=== PATIENT | female | born 1995 | race Caucasian/White ===

== ENCOUNTER 2023-07-30 07:41 | Outpatient (CLI) | payer OTHER, SELFPAY ==
--- NOTE | 2023-07-30 08:15 | CRLHL7_ITS ---
For Patients: As a result of the Century Cures Act, medical imaging exams and procedure reports are released immediately into your electronic medical record. You may view this report before your referring provider. If you have questions, please contact your health care provider. INDICATION: First trimester scan, establish dates. COMPARISON: None. TECHNIQUE: Real-time rascon-scale imaging of the pelvis was performed. FINDINGS: Sonographic imaging demonstrates a single living intrauterine gestation. The embryo demonstrates a regular cardiac rate measuring 154 beats per minute. The embryo`s crown-rump length measurement of 1.6 cm corresponds to a gestational age of 8 weeks 0 days with a sonographic due date of 03/10/2024. There is a normal-appearing yolk sac. There are no gross abnormalities noted within the embryo at this early state of development. The gestational sac has a normal appearance. There is no evidence of a perigestational hemorrhage. The amount of fluid within the sac appears appropriate for gestational age. The cervix is closed. The myometrium appears normal. The ovaries are of normal size. Corpus luteal cyst right ovary. There are no suspicious fluid collections noted in the cul-de-sac. IMPRESSION: Normal first trimester OB ultrasound exam. Gestational age calculated at 8 weeks 0 days with a sonographic due date of 03/10/2024. Dictated by Marco Bazzi MD @ 07/30/2023 8:43:58 AM (Electronically Signed)
== END 2023-07-30 07:42 | disposition home or self-care (01) ==
PROVIDERS: Visit Provider Physician Assistant
DX: Z34.91 Encounter for supervision of normal pregnancy, unspecified, first trimester (principal); Z3A.09 9 weeks gestation of pregnancy
CPT/HCPCS: 76817; 82565; 82570; 84156; 84443; 84450; 84460; 84520; 86592; 86703; 86704; 86706; 86762; 86787; 86803; 86850; 86900; 86901; 87086; 87340; 87491; 87591

== ENCOUNTER 2023-08-27 10:35 | Outpatient (CLI) | payer OTHER, SELFPAY | END 2023-08-27 10:36 | disposition home or self-care (01) | PROVIDERS: Visit Provider Obstetrics & Gynecology | DX: R74.01 Elevation of levels of liver transaminase levels (principal) | CPT/HCPCS: 82570; 84156; 84450; 84460 ==

== ENCOUNTER 2023-08-31 01:00 | Outpatient (CLI) | payer OTHER, SELFPAY | END 2023-08-31 01:01 | disposition home or self-care (01) | LOC: NFLDREF 09-01 12:50 | PROVIDERS: Visit Provider Obstetrics & Gynecology | DX: R74.01 Elevation of levels of liver transaminase levels (principal) | CPT/HCPCS: 82570; 84156 ==

== ENCOUNTER 2023-10-15 12:17 | Outpatient (CLI) | payer OTHER, SELFPAY ==
--- NOTE | 2023-10-15 12:15 | CRLHL7_ITS ---
For Patients: As a result of the Century Cures Act, medical imaging exams and procedure reports are released immediately into your electronic medical record. You may view this report before your referring provider. If you have questions, please contact your health care provider. INDICATION: Evaluate anatomy. COMPARISON: 07/30/2023 TECHNIQUE: Real time rascon scale imaging of the fetus was performed as well as color Doppler analysis of the umbilical vessels. FINDINGS: Sonographic imaging demonstrates a single living intrauterine gestation. Fetus demonstrates a regular cardiac rate of 144 beats per minute. Fetus has a vertex position. The placenta lies anteriorly. With transvaginal measurement, the placental edge is located 1.5 cm from the internal cervical os. Amniotic fluid volume appears normal. Single deepest vertical pocket: 3.8 cm. The cervix is closed and measures 3.6 cm in length. The composite ultrasound gestational age is calculated at 19 weeks 1 day with an estimated sonographic due date of 03/09/2024. The estimated weight is 273 grams which lies at the 8th %. The following biometric measurements were obtained: Biparietal diameter: 4.2 cm/18 weeks 6 days 10th% Head circumference: 16.4 cm/19 weeks 1 day 9th% Abdominal circumference: 13.5 cm/19 weeks 0 days 15th% Femur length: 3.0 cm/19 weeks 1 day 17th% The HC/AC ratio measures: 1.21 range (1.09-1.26) On anatomic survey, there is a normal appearance of the cerebral ventricles, cavum septi pellucidi, cisterna magna and cerebellum. The nose, lips, and facial profile appear normal. The cervical, thoracic and lumbar spine are well visualized and appear normal. There is a normal four-chamber heart view and the left and right ventricular outflow tracts appear normal. The diaphragm and stomach appear normal. The kidneys and bladder also appear normal. There is a normal three-vessel cord and cord insertion site. The four extremities appear normal. IMPRESSION: Sonographic gestational age 19 weeks 1 day and sonographic due date 03/09/2024. Sonographic age 6 days behind the clinical age. Estimated weight 8th percentile. Abdominal circumference 15th percentile. No intrinsic abnormalities noted on anatomic survey. Low lying placenta located 1.5 cm from the internal cervical os. Dictated by Marco Bazzi MD @ 10/15/2023 2:02:46 PM (Electronically Signed)
== END 2023-10-15 12:18 | disposition home or self-care (01) ==
PROVIDERS: Visit Provider Obstetrics & Gynecology
DX: Z34.92 Encounter for supervision of normal pregnancy, unspecified, second trimester (principal); Z3A.19 19 weeks gestation of pregnancy
CPT/HCPCS: 76805; 76817; 76820

== ENCOUNTER 2023-12-10 10:00 | Outpatient (CLI) | payer BC, SELFPAY | END 2023-12-10 10:01 | disposition home or self-care (01) | LOC: NFLDREF 12-20 08:32 | PROVIDERS: Visit Provider Obstetrics & Gynecology | DX: Z34.82 Encounter for supervision of other normal pregnancy, second trimester (principal) | CPT/HCPCS: 86592 ==

== ENCOUNTER 2024-01-28 13:49 | Outpatient (CLI) | payer BC, SELFPAY | END 2024-01-28 13:50 | disposition home or self-care (01) | LOC: NFLDREF 01-31 07:22 | PROVIDERS: Visit Provider Obstetrics & Gynecology | DX: O99.013 Anemia complicating pregnancy, third trimester (principal); Z3A.37 37 weeks gestation of pregnancy | CPT/HCPCS: 82728 ==

== ENCOUNTER 2024-02-14 13:06 | Outpatient (CLI) | payer BC, SELFPAY ==
--- NOTE | 2024-02-14 13:00 | US_ITS ---
Patient: BETTY MCKEON Facility:?[facility] Patient ID:?[id number] Site Patient ID:?[id number]. Site :?[id number] Study:?US-OB Pelvis growth-02/14/2024 1:41:29 PM Ordering Physician:Malina Garcia Final Report: INDICATION: Third trimester scan, evaluate growth. COMPARISON: 10/15/2023 TECHNIQUE: Real time rascon scale imaging of the fetus was performed. FINDINGS: Sonographic imaging demonstrates a single living intrauterine gestation. Fetus demonstrates a regular cardiac rate of 169 beats per minute. Fetus has a vertex position. The placenta lies anteriorly. Amniotic fluid volume appears normal and there is a single deepest vertical pocket: 7.2 cm. The estimated weight is 3192gm which lies at the 78th %. On the prior OB ultrasound exam dated 10/15/2023 the estimated weight was at the 8th%. BPD is 74th percentile. HC 41st percentile. AC 95th percentile. FL 31st percentile. The HC/AC ratio measures 0.96 range (0.92-1.05). IMPRESSION: Sonographic gestational age 37 weeks 0 days and a sonographic due date of 03/06/2024. Sonographic age 4 days ahead of the clinical age. Estimated weight is 78th percentile. Abdominal circumference is 95th percentile. Dictated by Marco Bazzi MD @ 02/15/2024 9:23:11 AM Signed by:?Marco Bazzi MD @02/15/2024 9:23:11 AM (Electronic Signature)
== END 2024-02-14 13:07 | disposition home or self-care (01) ==
LOC: US 13:07
PROVIDERS: Visit Provider Obstetrics & Gynecology
DX: O26.843 Uterine size-date discrepancy, third trimester (principal); Z3A.37 37 weeks gestation of pregnancy
CPT/HCPCS: 76816; 87081; 87653

== ENCOUNTER 2024-03-14 07:03 | Inpatient (IN) | payer BC, SELFPAY ==
[2024-03-14] VITALS (37 sets, daily range): BP systolic 51–164; BP diastolic 32–84; PULSE 46–115; RESP 16; TEMP 35.9–37.1; O2SAT 97–100; BMI 33.9
[2024-03-14] MEDS: LACTATED RINGERS 1000 ML 1,000 ML 1200 ML IV ×2 (08:28→11:44)
--- NOTE | 2024-03-14 08:51 | P.LDBA_ITS ---
Subjective History of Present Illness Date Seen: 03/14/24 Narrative: Patient is being admitted to Labor and Delivery for scheduled repeat . She is a 28 year old -0-0-1 woman at 40 weeks, 3 days gestation. Her full history and physical was dictated by Dr. Webber on 02/21. Please see this for details. Specific Issues/Plans [id number] 4 yo girl, [place] # History of gestational hypertension antepartum (beginning 33 weeks), followed by severe pre E Baseline pre E labs: all with the exception of mildly elevated AST, 46. pr/cr ratio: 0.00 24 hour urine 08/31/23: 55 mg Repeat AST normal 08/27/23 Aspirin 81 mg starting at 12 weeks # History of , breech presentation - 67% success score Desires if spontaneous labor, otherwise tentatively planning repeat 40-41 weeks, scheduled for 03/14/24 Consent signed 01/14/24 [x] 36 week growth - 3192g, 78%ile # Anemia at 34 weeks. Hb 10.0. * Ferrous sulfate 650 mg QOD. # Non-immune to hepatitis B # History of anovulatory infertility. Conceived spontaneously. # Low-lying placenta - Resolved on MFM scan on 11/01: >2 cm from internal os. # growth restriction @ anatomy scan (20w0d) - RESOLVED EFW 8th percentile, AC 15%tile, normal UA Doppler SDP 3.8 cm Referral to [facility] (11/01/23): Her ANGELITA was re-dated to 03/10/24. EFW 52% and AC 52%tile. Overall normal, but suboptimally used. Follow-up in 3 weeks for repeat ultrasounds. Repeat US 11/22/23: EFW 808g, 83%ile. Normal anatomy. # COVID in (29 weeks) FLU: 07/30 Covid: RSV: NA TDAP: 01/14/24 OB - Problem Based A/P Additional Plan (1) : Status: Acute (2) Previous delivery affecting : Status: Acute Delivery/Labor/Induction Plan Plan: Section OB Exam Physical Exam Vital signs: Temp Pulse Resp BP Pulse Ox 98.7 F 97 16 133/83 99 03/14/24 07:33 03/14/24 07:33 03/14/24 07:33 03/14/24 07:33 03/14/24 07:33 Narrative: General: Pleasant, no acute distress Heart: Regular rate and rhythm, no murmur or gallop Lungs: Clear to auscultation bilaterally Abdomen: Soft, nontender, gravid Lower extremities: Trace bilateral edema, no erythema
[2024-03-14 08:56] LABS: Hemoglobin* 10.6 gm/dL (12.0-16.0)
[2024-03-14 09:28] LABS: Basophils Percent Auto 0.1 % (0.0-3.0); Eosinophils Percent Auto 0.5 % (0.0-7.0); Hematocrit 33.1 % (33.0-51.0); Hemoglobin* 10.7 gm/dL (12.0-16.0); Immature Granulocytes Pct Auto 0.3 %; Lymphocytes Percent Auto 17.2 % (20-44); Mean Corpuscular HGB Conc 32 gm/dL (32-36); Mean Corpuscular Hemoglobin 25 pg (26-34); Mean Corpuscular Volume 78 fL (80-100); Monocytes Percent Auto 6.3 % (0.0-11.0); Neutrophils Percent Auto 75.6 % (42.0-72.0); Platelet Count* 253 K/uL (140-440); RDW Coefficient of Variation % 15.9 % (11.5-15.5); Red Blood Count 4.24 m/uL (4.00-5.20); Slide Review Reflex No; White Blood Count* 11.79 K/uL (4.50-11.00)
--- NOTE | 2024-03-14 09:45 | W.ANESCHARGE ---
Anesthesia Charges Start Date/Time Anesthesia Start Date: 03/14/24 Anesthesia Start Time: 09:57 Stop Date/Time Anesthesia Stop Date: 03/14/24 Anesthesia Stop Time: 11:24
[2024-03-14] MEDS: CEFAZOLIN 2 GM INJ IVP (10:12)
[2024-03-14] MEDS: LACTATED RINGERS 1000 ML 1,000 ML 100 ML IV (10:27)
[2024-03-14] MEDS: KETOROLAC 30 MG/ML inj IVP ×3 (10:43→23:43)
--- NOTE | 2024-03-14 10:49 | W.ANESCHARGE ---
Anesthesia Charges Start Date/Time Anesthesia Start Date: 03/14/24 Anesthesia Start Time: 09:57 Stop Date/Time Anesthesia Stop Date: 03/14/24 Anesthesia Stop Time: 11:24
--- NOTE | 2024-03-14 11:10 | PM.OBPRCCS ---
Procedure Date of procedure: 03/14/24 Will [facility] bill your pro fee for this procedure?: Yes Procedure Description: PREOPERATIVE DIAGNOSIS: 40 weeks, 4 days gestation Previous , desires repeat POSTOPERATIVE DIAGNOSIS: 40 weeks, 4 days gestation Previous , desires repeat PROCEDURE: Primary low-transverse section SURGEON: Malina Mclain MD ANESTHESIA: Spinal, TAP block IV FLUIDS: 1700 mL crystalloid QBL: 542 mL FINDINGS: 1. Female , cephalic OA presentation, Apgars of 8 and 9, weight 9 lb, 2 oz 2. Normal appearance to uterus, bilateral tubes and ovaries. COMPLICATIONS: None PROCEDURE IN DETAIL: Patient was taken to the operating room with IV running. She received cefazolin in preoperative prophylaxis. Spinal anesthesia was administered. Ferrell catheter was inserted. She was prepped and draped in the usual sterile fashion. Anesthesia was tested and found to be adequate. A low-transverse skin incision was made with a scalpel and carried through to the underlying layer of fascia with the scalpel. The subcutaneous fat was dissected off the underlying fascia with Bovie. The fascia was nicked in the midline with a scalpel, and this incision was extended laterally with scissors. The rectus sheath was dissected for short distance off the underlying rectus muscle stools superiorly and inferiorly, using the Bovie. The rectus muscles were in the midline. Peritoneum was identified and entered bluntly. Bovie was used to widen this opening. Adarsh O retractor was inserted and tightened down, providing excellent visualization of the lower uterine segment. The bladder reflection was found to be well below the planned site for hysterotomy. Low-transverse uterine incision was made with a scalpel. Incision was widened bluntly. The 's head was grasped through the hysterotomy. Several attempts were made to deliver the 's head with fundal pressure, all unsuccessful. The Adarsh retractor was removed, to no avail. The fascia was further dissected off the underlying rectus sheath both superiorly and inferiorly, and the skin incision was extended. These maneuvers allowed delivery of the 's head with the help of fundal pressure. The remainder of the body delivered without incident. Cord was immediately clamped and cut. Infant was handed off to attending nurses. The placenta was delivered with gentle traction on the cord. The uterus was exteriorized and cleaned of all clots and debris with the dry lap pad. The hysterotomy was reapproximated with 0 Vicryl in a running, locked fashion. Bovie was used along the left angle of the hysterotomy to obtain hemostasis. The adnexa were examined and noted to be normal in appearance. The cul-de-sac and gutters were cleansed with dampened laparotomy sponge, removing any further clots and debris. The uterus was returned to the abdomen. The hysterotomy was reexamined and found to be hemostatic. The peritoneum was reapproximated with 2 0 Vicryl in a running fashion. The rectus muscles were examined and found to be hemostatic. The fascia was reapproximated with 0 Vicryl in a running fashion. Subcutaneous fat was irrigated and Bovie used on oozing vessels. The subcutaneous fat was reapproximated with 2 0 plain gut suture in an interrupted fashion. The skin was closed with a subcuticular stitch of 4-0 Monocryl. Surgical glue was applied above this. Patient tolerated procedure with some difficulty due to anxiety. She was taken to recovery area in stable condition.
--- NOTE | 2024-03-14 11:28 | W.PM.NB ---
Nerve Block Nerve Block Time Seen by Provider: 11:11 Date Seen: 03/14/24 Type of block requested by surgeon for post-operative analgesia: TAP Side: bilateral Time out performed: Yes Verification of patient name: Yes Verification of date of : Yes Site marking: site marked Name of person performing procedure: Will Continuous monitoring Was continuous monitoring of O2 sat, B/P, monitor and storage bin tender, recorded every 15 minutes?: Yes Procedure Checklist: sterile prep, needles and gloves Ultrasound guided. Images saved: Yes Medications given in 5ml increments after negative aspiration: Marcaine %: 0.25 mL: 30 Needle gauge: 20 and Exparel mL: 10 Patient tolerated procedure well: Yes Additional comments: Needle noted between internal oblique and transversus abdominus. Local spread visualized Block Charges Block Charge (with Pro Fee): TAP Bilateral Use of Ultrasound Machine for Block: Yes- US Guidance/pain block
[2024-03-14] MEDS: PHENYLEPHRINE 100 MCG/ML SYRINGE IVP ×2 (11:38→11:43)
[2024-03-14] MEDS: ePHEDrine sulfate 5 MG/ML inj IVP (11:43)
[2024-03-14] MEDS: LACTATED RINGERS 1000 ML 1,000 ML 125 ML IV (12:51)
[2024-03-14] MEDS: ACETAMINOPHEN 500 MG TABLET 1000 MG PO (13:02)
[2024-03-14] MEDS: ENOXAPARIN 40 MG/0.4 ML INJ SUBCUT (23:43)
[2024-03-15] VITALS (26 sets, daily range): BP systolic 113–134; BP diastolic 59–86; PULSE 63–107; RESP 16–20; TEMP 36.3–36.8; O2SAT 97–100
[2024-03-15] MEDS: ACETAMINOPHEN 500 MG TABLET 1000 MG PO ×3 (04:43→20:53)
[2024-03-15] MEDS: SODIUM CHLORIDE 0.9 % (FLUSH) 10 ML SYRINGE IVF ×2 (06:02→17:56)
[2024-03-15] MEDS: KETOROLAC 30 MG/ML inj IVP ×2 (06:02→17:56)
[2024-03-15 06:55] LABS: Hemoglobin* 5.9 gm/dL (12.0-16.0)
--- NOTE | 2024-03-15 07:01 | CRLHL7_ITS ---
For Patients: As a result of the Century Cures Act, medical imaging exams and procedure reports are released immediately into your electronic medical record. You may view this report before your referring provider. If you have questions, please contact your health care provider. INDICATION: R/O BLEED POST C-SEC 03/14/24 TECHNIQUE: CT abdomen and pelvis without and with 101 cc Isovue 370 IV contrast. COMPARISON: None. FINDINGS: The liver is normal in size, shape and attenuation. Gallbladder and biliary tree are normal. The spleen, adrenal glands and pancreas are within normal limits. Heterogenous enlargement of the uterus with moderate to large volume heterogeneous fluid within the uterine cavity with multifocal air droplets. Finding likely relates to sequela of recent although can not exclude retained products of conception or endometritis. Recommend clinical correlation. Serpiginous periuterine and myometrial enhancement which likely represents vasculature. This would make a small acute hemorrhage difficult to exclude although there is no evidence of prominent intraperitoneal or retroperitoneal hematoma. There is however small volume heterogeneous fluid within the lower pelvis which likely represents blood products. Small volume free air within the low pelvis as well as within the rectus musculature and subcutaneous soft tissues, likely postoperative. Moderate to severe right and [id number] left hydroureteronephrosis without evidence of ureteral calculus. 4 millimeter nonobstructing right intrarenal calculus is noted. No evidence of bowel obstruction or inflammation. No significant free fluid and no free air. Moderately distended bladder without wall thickening. The lower chest is unremarkable. IMPRESSION: Heterogenous enlargement of the uterus with moderate to large volume heterogeneous fluid within the uterine cavity with multifocal air droplets. Finding likely relates to sequela of recent although can not exclude retained products of conception or endometritis. Recommend clinical correlation. Serpiginous periuterine and myometrial enhancement which likely represents vasculature. This would make a small acute hemorrhage difficult to exclude although there is no evidence of prominent intraperitoneal or retroperitoneal hematoma. There is however small volume heterogeneous fluid within the lower pelvis which likely represents blood products. Small volume free air within the low pelvis as well as within the rectus musculature and subcutaneous soft tissues, likely postoperative. Moderate to severe right and [id number] left hydroureteronephrosis without evidence of ureteral calculus. 4 millimeter nonobstructing right intrarenal calculus is noted. Please note that all CT scans at this facility use dose modulation, iterative reconstruction, and/or weight-based dosing when appropriate to reduce radiation dose to as low as reasonably achievable. Dictated by Schuyler Alvarado MD @ 03/15/2024 8:18:29 AM (Electronically Signed)
[2024-03-15 07:18] LABS: Basophils Percent Auto 0.1 % (0.0-3.0); Eosinophils Percent Auto 0.4 % (0.0-7.0); Hematocrit 20.1 % (33.0-51.0); Immature Granulocytes Pct Auto 0.3 %; Lymphocytes Percent Auto 15.4 % (20-44); Mean Corpuscular HGB Conc 32 gm/dL (32-36); Mean Corpuscular Hemoglobin 25 pg (26-34); Mean Corpuscular Volume 80 fL (80-100); Monocytes Percent Auto 7.6 % (0.0-11.0); Neutrophils Percent Auto 76.2 % (42.0-72.0); Platelet Count* 206 K/uL (140-440); RDW Coefficient of Variation % 16.2 % (11.5-15.5); Red Blood Count 2.52 m/uL (4.00-5.20); White Blood Count* 15.23 K/uL (4.50-11.00)
[2024-03-15 07:22] LABS: Hemoglobin* 6.4 gm/dL (12.0-16.0)
[2024-03-15 07:35] LABS: Albumin* 2.6 g/dL (3.3-5.0); Chloride* 103 mmol/L (96-114); Potassium* 3.9 mmol/L (3.6-5.1); Sodium* 131 mmol/L (135-149)
[2024-03-15 07:37] LABS: Creatinine* 0.6 mg/dL (0.5-1.5); Est. Creatinine Clearance* 126.73; Estimated Glomerular Filt Rate 126 ml/min
[2024-03-15 07:38] LABS: Alanine Aminotransferase* 12 U/L (4-35); Alkaline Phosphatase* 138 U/L (40-150); Anion Gap 3 mEq/L (7-15); Aspartate Amino Transferase* 22 U/L (12-35); Bilirubin Total* 0.3 mg/dL (0.1-1.5); Blood Urea Nitrogen* 11 mg/dL (5-24); Carbon Dioxide* 25 mmol/L (20-32); Glucose* 97 mg/dL (60-115); Total Protein* 4.8 g/dL (6.0-8.3)
[2024-03-15 07:39] LABS: Calcium* 7.8 mg/dL (8.4-10.6)
[2024-03-15 07:40] LABS: Fibrinogen* 426 mg/dL (200-450); INR 1.01 (0.91-1.10); Partial Thromboplastin Time* 31 Seconds (23-33); Prothrombin Time 13.9 Seconds
[2024-03-15 08:44] LABS: Slide Review Reflex No
[2024-03-15] MEDS: 0.9 % SODIUM CHLORIDE 250 ml IV (11:18)
[2024-03-15 14:43] LABS: Basophils Percent Auto 0.1 % (0.0-3.0); Eosinophils Percent Auto 0.2 % (0.0-7.0); Hematocrit 23.9 % (33.0-51.0); Immature Granulocytes Pct Auto 1.2 %; Lymphocytes Percent Auto 15.9 % (20-44); Mean Corpuscular HGB Conc 32 gm/dL (32-36); Mean Corpuscular Hemoglobin 26 pg (26-34); Mean Corpuscular Volume 81 fL (80-100); Monocytes Percent Auto 7.3 % (0.0-11.0); Neutrophils Percent Auto 75.3 % (42.0-72.0); Platelet Count* 193 K/uL (140-440); RDW Coefficient of Variation % 16.6 % (11.5-15.5); Red Blood Count 2.97 m/uL (4.00-5.20); White Blood Count* 12.33 K/uL (4.50-11.00)
[2024-03-15 14:45] LABS: Hemoglobin* 7.7 gm/dL (12.0-16.0)
[2024-03-15 14:50] LABS: Slide Review Reflex Yes
[2024-03-15 14:54] LABS: Partial Thromboplastin Time* 29 Seconds (23-33)
[2024-03-15 14:55] LABS: Fibrinogen* 453 mg/dL (200-450)
[2024-03-15 14:56] LABS: INR 0.95 (0.91-1.10); Prothrombin Time 13.3 Seconds
[2024-03-15 15:30] LABS: Slide Review Acceptable Review (Acceptable)
[2024-03-15 18:06] LABS: Rapid Plasma Reagin (RPR) Non Reactive (Non Reactive)
--- NOTE | 2024-03-15 18:14 | P.OBPN_ITS ---
OB - PN:Subj Subjective Time Seen by Provider: 07:30 Date Seen: 03/15/24 Interval history: Tarsha is a 28 yo G2 now P 2-0-0-2 woman who is status post repeat delivery on 03/13/2024 at 40 weeks, 3 days gestation. OB PROBLEM LIST # History of gestational hypertension antepartum (beginning 33 weeks), followed by severe pre E Baseline pre E labs: all with the exception of mildly elevated AST, 46. pr/cr ratio: 0.00 24 hour urine 08/31/23: 55 mg Repeat AST normal 08/27/23 Aspirin 81 mg starting at 12 weeks # History of , breech presentation - 67% success score Desires if spontaneous labor, otherwise tentatively planning repeat 40-41 weeks, scheduled for 03/14/24 Consent signed 01/14/24 [x] 36 week growth - 3192g, 78%ile # Anemia at 34 weeks. Hb 10.0. * Ferrous sulfate 650 mg QOD. # Non-immune to hepatitis B # History of anovulatory infertility. Conceived spontaneously. # Low-lying placenta - Resolved on MFM scan on 11/01: >2 cm from internal os. # growth restriction @ anatomy scan (20w0d) - RESOLVED EFW 8th percentile, AC 15%tile, normal UA Doppler SDP 3.8 cm Referral to MFM (11/01/23): Her ANGELITA was re-dated to 03/10/24. EFW 52% and AC 52%tile. Overall normal, but suboptimally used. Follow-up in 3 weeks for repeat ultrasounds. Repeat US 11/22/23: EFW 808g, 83%ile. Normal anatomy. # COVID in (29 weeks) Narrative: I was called urgently to Tarsha's room this morning after routine hemoglobin this morning was noted to be 5.9. Tarsha had stable vital signs throughout the night. She was meeting postoperative milestones, and does not complain of pain. She was able to ambulate to the bathroom. Upon questioning, she does not note any ongoing heavy bleeding, but does report the passage of 2 large clots last night. Her QBL from surgery was 542 mL. She has had normal urine output overnight. She did receive a dose of prophylactic Lovenox 40 mg 12 hours after surgery She is using Toradol for pain. For routine progress: She has been breast-feeding her daughter with formula supplementation. She tolerated regular diet last night and reports having passed flatus. She is urinating without difficulty. As noted above, she has no complaints with nausea, vomiting, pain, or heavy bleeding. OB - PN: Obj Exam Physical Exam: Vital signs: Temp Pulse Resp BP Pulse Ox O2 Del Method 98.1 F 98 16 122/78 99 Room Air 03/15/24 16:35 03/15/24 16:35 03/15/24 16:35 03/15/24 16:35 03/15/24 16:35 03/15/24 16:35 Narrative: General: Pleasant, no acute distress, appears pale Heart: Regular rate and rhythm, no murmur or gallop Lungs: Clear to auscultation bilaterally Abdomen: Hypoactive bowel sounds. Soft, appropriately tender, fundus 2 cm below umbilicus, incision clean, dry, and intact Lower extremities: 2+ edema, no erythema Urinary Catheter Management: Urethral: Cath placed during this visit: yes, but has since been removed by the nurse Reason for continuing: not indwelling catheter Insertion date: 03/14/24 Insertion time: 10:25 Removal date: 03/14/24 Removal time: 18:40 OB - PN: Obj Data Labs Labs: Laboratory Results - last 24 hr 03/14/24 03/15/24 03/15/24 08:13 06:06 07:13 WBC 15.23 H RBC 2.52 L Hgb 5.9 L* 6.4 L* Hct 20.1 L MCV 80 MCH 25 L MCHC 32 RDW Coeff of Amando 16.2 H Plt Count 206 Neut % (Auto) 76.2 H Lymph % (Auto) 15.4 L [place] % (Auto) 7.6 Eos % (Auto) 0.4 Baso % (Auto) 0.1 Neut # (Auto) 11.60 H Lymph # (Auto) 2.30 [place] # (Auto) 1.20 H Eos # (Auto) 0.10 Baso # (Auto) 0.00 Abs Immat Gran (auto) 0.00 Imm/Tot Granulo (auto) 0.3 Diff Slide Review INR 1.01 APTT 31 Fibrinogen 426 Sodium 131 L Potassium 3.9 Chloride 103 Carbon Dioxide 25 Anion Gap 3 L BUN 11 Creatinine 0.6 Estimated Creat Clear 126.73 Estimated GFR 126 Glucose 97 Calcium 7.8 L Total Bilirubin 0.3 AST 22 ALT 12 Alkaline Phosphatase 138 Total Protein 4.8 L Albumin 2.6 L RPR Screen Non Reactive Blood Type A Positive Antibody Screen NEGATIVE Crossmatch (AHG) See Detail 03/15/24 14:31 WBC 12.33 H RBC 2.97 L Hgb 7.7 L* Hct 23.9 L MCV 81 MCH 26 MCHC 32 RDW Coeff of Amando 16.6 H Plt Count 193 Neut % (Auto) 75.3 H Lymph % (Auto) 15.9 L [place] % (Auto) 7.3 Eos % (Auto) 0.2 Baso % (Auto) 0.1 Neut # (Auto) 9.30 H Lymph # (Auto) 2.00 [place] # (Auto) 0.90 Eos # (Auto) 0.00 Baso # (Auto) 0.00 Abs Immat Gran (auto) 0.10 Imm/Tot Granulo (auto) 1.2 Diff Slide Review Acceptable Review INR 0.95 APTT 29 Fibrinogen 453 H Sodium Potassium Chloride Carbon Dioxide Anion Gap BUN Creatinine Estimated Creat Clear Estimated GFR Glucose Calcium Total Bilirubin AST ALT Alkaline Phosphatase Total Protein Albumin RPR Screen Blood Type Antibody Screen Crossmatch (AHG) Imaging CT Chest/Ab/Pelvis: Radiologist's impression: IMPRESSION: Heterogenous enlargement of the uterus with moderate to large volume heterogeneous fluid within the uterine cavity with multifocal air droplets. Finding likely relates to sequela of recent although can not exclude retained products of conception or endometritis. Recommend clinical correlation. Serpiginous periuterine and myometrial enhancement which likely represents vasculature. This would make a small acute hemorrhage difficult to exclude although there is no evidence of prominent intraperitoneal or retroperitoneal hematoma. There is however small volume heterogeneous fluid within the lower pelvis which likely represents blood products. Small volume free air within the low pelvis as well as within the rectus musculature and subcutaneous soft tissues, likely postoperative. Moderate to severe right and [id number] left hydroureteronephrosis without evidence of ureteral calculus. 4 millimeter nonobstructing right intrarenal calculus is noted. OB - PN: A/P Delivery Assessment and Plan (1) Acute post-hemorrhagic anemia: Status: Acute Assessment and Plan: No intra-abdominal or retroperitoneal bleeding on CT of abdomen and pelvis. It appears that her post hemorrhagic anemia is due to intraoperative blood loss and vaginal bleeding after surgery. This was not previously noted to be of were some quantity, but perhaps some of the blood loss that she experienced in the toilet attributed to this severe anemia. At this time, blood loss is within normal ranges. I would be quick to treat her with uterotonics should the need arise. Otherwise, she will be transfused 2 units of packed red cells and 1 unit of FFP. I will repeat her complete blood count and coagulation studies 2 hours after completion of the transfusion of FFP. I will also repeat complete blood count tomorrow morning. (2) Status post repeat low transverse section: Status: Acute Assessment and Plan: Despite her level blood loss, appropriate postoperative course. I encouraged her to stay for 3 days post . Plan day: 1
[2024-03-15] MEDS: OXYCODONE 5 MG TABLET PO (22:21)
[2024-03-16] VITALS (7 sets, daily range): BP systolic 114–138; BP diastolic 77–90; PULSE 75–93; RESP 16–20; TEMP 36.4–36.9; O2SAT 98–99
[2024-03-16] MEDS: IBUPROFEN 600 MG TABLET PO ×4 (04:05→23:06)
[2024-03-16] MEDS: ACETAMINOPHEN 500 MG TABLET 1000 MG PO ×3 (06:24→19:46)
[2024-03-16 07:05] LABS: Hemoglobin* 7.8 gm/dL (12.0-16.0)
--- NOTE | 2024-03-16 08:38 | P.OBPN_ITS ---
OB - PN:Subj Subjective Date Seen: 03/16/24 Interval history: Tarsha is a 28 yo G2 now P 2-0-0-2 woman who is status post repeat delivery on 03/13/2024 at 40 weeks, 3 days gestation. OB PROBLEM LIST # History of gestational hypertension antepartum (beginning 33 weeks), followed by severe pre E Baseline pre E labs: all with the exception of mildly elevated AST, 46. pr/cr ratio: 0.00 24 hour urine 08/31/23: 55 mg Repeat AST normal 08/27/23 Aspirin 81 mg starting at 12 weeks # History of , breech presentation - 67% success score Desires if spontaneous labor, otherwise tentatively planning repeat 40-41 weeks, scheduled for 03/14/24 Consent signed 01/14/24 [x] 36 week growth - 3192g, 78%ile # Anemia at 34 weeks. Hb 10.0. * Ferrous sulfate 650 mg QOD. # Non-immune to hepatitis B # History of anovulatory infertility. Conceived spontaneously. # Low-lying placenta - Resolved on MFM scan on 11/01: >2 cm from internal os. # growth restriction @ anatomy scan (20w0d) - RESOLVED EFW 8th percentile, AC 15%tile, normal UA Doppler SDP 3.8 cm Referral to MFM (11/01/23): Her ANGELITA was re-dated to 03/10/24. EFW 52% and AC 52%tile. Overall normal, but suboptimally used. Follow-up in 3 weeks for repeat ultrasounds. Repeat US 11/22/23: EFW 808g, 83%ile. Normal anatomy. # COVID in (29 weeks) Narrative: Tarsha is a 28 y.o. G 2 P 1 who was admitted to L & D for repeat section. ?She had a section that was uncomplicated. Her course was complicated by hemoglobin of 5.9 by routine hemoglobin check yesterday morning. Her vitals had been stable the night prior and bleeding appropriate. She barnhart reported passing 2 large clots but total QBL from surgery was 542. She received 2 units of RBC and 1 unit of FFP. This morning her hemoglobin is 7.8. She is visibly pale. The patient feels well. ?The pain is well controlled with current medications. ?She has no new complaints. ?She is breast feeding and reports things are going well. Vitals have been stable.? She has remained afebrile.? Has a good appetite, is tolerating a general diet. She reports she has hardly been out of bed this morning but has been up to the bathroom with no problems. She is siting in high fowlers and reports no symptoms of dizziness. She is voiding without difficulty.? She is passing gas and has no t had a bowel movement.? Has small amount of rubra lochia. Encouraged for her to be up and ambulating to assess if she is symptomatic. If stable and asymptomatic, recommend IV iron. If she has any symptoms of dizziness, lightheaded, tachycardia or other symptoms of acute blood loss, would consider an additional unit of RBC. RN updated provider that patient has been able to walk the unit with no d izziness. Plan iron infusion today. If doing well, anticipate discharge tomorrow. Problems: Severe Anemia received 2 units RBC and 1 unit FFP. IV iron infusion today. OB - PN: Obj Exam Physical Exam: Vital signs: Temp Pulse Resp BP Pulse Ox O2 Del Method 97.5 F L 81 18 138/85 98 Room Air 03/16/24 04:06 03/16/24 04:06 03/16/24 04:06 03/16/24 04:06 03/16/24 04:06 03/16/24 04:06 Narrative: GENERAL APPEARANCE:? normal affect, alert, no distress. Pale lips/mucous membranes. MOOD:? appropriate CHEST:? clear to auscultation HEART:? regular rate and rhythm ABDOMEN:? soft, non-tender the uterine fundus is at Umbilicus, Midline and is appropriate for the stage of recovery. EXTREMITIES:? normal and trace edema INCISION: Dressing in place; clean, dry, and intact. Should be removed this morning. Urinary Catheter Management: Urethral: Cath placed during this visit: yes, but has since been removed by the nurse Reason for continuing: not indwelling catheter Insertion date: 03/14/24 Insertion time: 10:25 Removal date: 03/14/24 Removal time: 18:40 OB - PN: Obj Data Labs Labs: Laboratory Results - last 24 hr 03/14/24 03/15/24 03/16/24 08:13 14:31 06:30 WBC 12.33 H RBC 2.97 L Hgb 7.7 L* 7.8 L* Hct 23.9 L MCV 81 MCH 26 MCHC 32 RDW Coeff of Amando 16.6 H Plt Count 193 Neut % (Auto) 75.3 H Lymph % (Auto) 15.9 L [place] % (Auto) 7.3 Eos % (Auto) 0.2 Baso % (Auto) 0.1 Neut # (Auto) 9.30 H Lymph # (Auto) 2.00 [place] # (Auto) 0.90 Eos # (Auto) 0.00 Baso # (Auto) 0.00 Abs Immat Gran (auto) 0.10 Imm/Tot Granulo (auto) 1.2 Diff Slide Review Acceptable Review INR 0.95 APTT 29 Fibrinogen 453 H RPR Screen Non Reactive Blood Type A Positive Antibody Screen NEGATIVE Crossmatch (AHG) See Detail OB - PN: A/P Delivery Assessment and Plan (1) care and examination immediately after delivery: Status: Acute (2) Acute post-hemorrhagic anemia: Status: Acute (3) Status post repeat low transverse section: Status: Acute (4) Lactating mother: Status: Acute Plan day: 2 Plan: routine care Comments: plan: Anticipate discharge home tomorrow. , may see if needed Hgb 7.8. Iron transfusion today. Monitor for symptoms and plan d/c tomorrow. Per pharmacy, the inpatient dose of iron is Venofer. This is best when 5 total doses are given over 2 weeks. Consider IV iron outpatient if wanting desired benefits. Patient would need 4 additional doses in the next 2 week.
[2024-03-16] MEDS: DOCUSATE SODIUM 100 MG CAPSULE PO (08:42)
[2024-03-16] MEDS: IRON SUCROSE COMPLEX 200 MG in 0.9 % SODIUM CHLORIDE 100 ml 100 ML 440 MG IVPB (12:25)
[2024-03-16] MEDS: OXYCODONE 5 MG TABLET PO (23:06)
[2024-03-17] MEDS: ACETAMINOPHEN 500 MG TABLET 1000 MG PO ×2 (01:55→09:21)
[2024-03-17 03:48] VITALS: BP 126/85; PULSE 72; TEMP 36.4; O2SAT 98
[2024-03-17] MEDS: IBUPROFEN 600 MG TABLET PO ×2 (06:06→12:10)
[2024-03-17] MEDS: OXYCODONE 5 MG TABLET PO (06:06)
--- NOTE | 2024-03-17 07:58 | P.DS_ITS ---
DS: Providers Provider Date Seen: 03/17/24 Date of admission: 03/14/24 07:03 Primary care physician: Not a Local Provider Admitting Clinician: Malina Mclain MD Attending Physician on discharge: Merlin Martino CNM Date of Discharge: 03/17/24 DS: Diagnosis Discharge Diagnosis (1) care and examination immediately after delivery: Status: Acute (2) Lactating mother: Status: Acute (3) Status post repeat low transverse section: Status: Acute (4) Acute post-hemorrhagic anemia: Status: Acute (5) Pelvic floor weakness in female: Status: Acute (6) Incontinence of urine in female: Status: Acute Exam Narrative: Exam Narrative: VSS. ?Afebrile GENERAL APPEARANCE: ?normal affect, alert, no distress MOOD: ?appropriate HEENT: normocephalic, neck supple, full ROM CHEST: ?Symmetrical chest wall movement. ?Normal respiratory effort. ?Clear to auscultation HEART: ?regular rate and rhythm ABDOMEN: ?soft, non-tender. Uterine fundus is firm, 1 below the Umbilicus, Midline and is appropriate for the stage of recovery. ?Bowel sounds present. EXTREMITIES: ?normal and no edema SKIN: warm, dry. ? ?Incision clean/dry/well approximated. ?No signs of infection noted. Const: Vital Signs, click to edit/add: Vital Signs - 24 hr 03/16/24 08:37 03/16/24 12:15 03/16/24 13:11 Temperature 98.0 F 98.5 F 97.9 F Pulse Rate [Pulse Oximeter] 75 80 91 Respiratory Rate 18 18 16 Blood Pressure [Ri ght Arm] 119/86 114/79 115/77 Pulse Oximetry 99 99 98 Oxygen Delivery Me thod Room Air Room Air Room Air 03/16/24 20:40 03/16/24 21:30 03/17/24 03:48 Temperature 98.3 F 97.5 F L Pulse Rate [Pulse Oximeter] 87 72 Respiratory Rate 20 Blood Pressure [Ri ght Arm] 137/90 H 127/84 126/85 Pulse Oximetry 99 98 Oxygen Delivery Me thod Room Air Room Air Documenting provider has reviewed patient's vital signs: yes OB - DS: Summary Hospital Course Hospital Course: Tarsha is a 28 y.o. who was admitted to [facility] & [facility] for repeat C/S. ?She had an uncomplicated .?The patient feels well. ?The pain is well controlled with current medications. ?She has no new complaints. ?She is breast feeding and reports things are going well, although she has started supplementing with formula for baby's weight loss.? the patient has done well.? Vitals have been stable.? She has remained afebrile.? Has a good appetite, is tolerating a general diet. ?She is voiding without difficulty, and complaints of urinary leaking between voiding.? She is passing gas and has not had a bowel movement.? She is ambulating and denies any dizziness.? Has Small amount of rubra lochia. ?She is undecided on her plan for prevention. Peripartum Data delivery method: Repeat Section Procedures: Procedures Operation Date: 03/14/24 09:30 Actual Procedure Side Surgeon p Repeat Section Malina Mclain MD complications: none Infant Gender: Female Infant Discharge Plan: Home Status at Discharge Functional status at discharge: independent ambulation Overall status at discharge: patient is progressing back to baseline Time Spent with Patient Time attestation: Total time spent providing and/or coordinating discharge services: Time spent: Less than 30 minutes Discharge Plan Discharge Disposition: Home, Self-Care Date of Admission: 03/14/24 07:03 Attending Provider on Discharge: Merlin Martino Primary Care Provider: Provider,Not a Local Condition: Stable Anticipated Discharge Date/Time: 03/17/24 12:00 Discharge Medications: New acetaminophen 500 mg Tablet 1,000 mg PO Q6H PRN (Reason: Pain) Qty: 0 0RF docusate sodium 100 mg Capsule 100 mg PO DAILY Qty: 90 2RF ibuprofen 600 mg Tablet 600 mg PO Q6H PRN (Reason: Pain) Qty: 60 0RF oxycodone 5 mg Tablet 5 - 10 mg PO Q4H PRN (Reason: Pain) Qty: 10 0RF Continued DHA 200 mg capsule 200 mg PO DAILY calcium carbonate [Tums] 200 mg calcium (500 mg) tablet,chewable 200 mg PO BID Changed ferrous sulfate 325 mg (65 mg iron) tablet 325 mg PO Q OTHER DAY Qty: 30 2RF Discontinued aspirin [Adult Aspirin Regimen] 81 mg tablet,delayed release (DR/EC) 81 mg PO DAILY Discharge Orders: Discharge Order (Routine); Ordered 03/17/24 Ordered By: Merlin Martino Patient Education: OB Over the Counter Medication Information, OB /Breast Feeding Additional Instructions: Discharge instructions were reviewed with the patient including signs and symptoms of infection and home going medications Lifting Restrictions: 20 pounds for 6 weeks No not submerge incision under water X 2 weeks? Nothing vaginally for 6 weeks: no tampons or intercourse Do not drive while taking narcotic pain medication(s) Off Work or School for 8 weeks 2-week visit: incision check, discuss infant feeding concerns, review control options and screen for anxiety/depression. 6-week visit for an annual exam. consultation services are available to all mothers and babies for the first year after delivery.? To make an appointment, please call [phone]. Activity Level: Activity as Tolerated Discharge Diet: Regular Follow Up Appointments: Provider,Not a Local [Primary Care Provider] - [facility] [Provider Group] Forms: [employer] Info Instructions
[2024-03-17 08:01] VITALS: BP 134/88; PULSE 85; RESP 16; TEMP 36.6; O2SAT 98
[2024-03-17] MEDS: DOCUSATE SODIUM 100 MG CAPSULE PO (09:21)
--- NOTE | 2024-03-17 09:54 | SUR.ANES ---
Pt seen for pressure in lower back postop day 3 csection. Pt states she has intermittent pressure above and below spinal injection site. Pt has full movement and sensation in all extremities. Injection site looks normal. Advised pt at this time to take pain medication as needed. If symptoms become more frequent or worsen to contact anesthesia. Pt is agreeable to plan
== END 2024-03-17 13:01 | disposition home or self-care (01) | DRG 540 ==
PROVIDERS: Obstetrics & Gynecology; Admitting Provider Obstetrics & Gynecology; Visit Provider Obstetrics & Gynecology
PROC: 10D00Z1 Extraction of Products of Conception, Low, Open Approach (ICD-10-PCS; CPT 59514; principal; 2024-03-14 09:15)
DX: O34.211 Maternal care for low transverse scar from previous cesarean delivery (principal); O99.02 Anemia complicating childbirth; D62 Acute posthemorrhagic anemia; O72.1 Other immediate postpartum hemorrhage; N81.84 Pelvic muscle wasting; R32 Unspecified urinary incontinence; G89.18 Other acute postprocedural pain; Z37.0 Single live birth; Z3A.40 40 weeks gestation of pregnancy
CPT/HCPCS: 01961; 36415; 36430; 51798; 64488; 74178; 76942; 80053; 85018; 85025; 85384; 85610; 85730; 86592; 86850; 86900; 86901; 86922; A9270; C9290; J0665; J0690; J1100; J1650; J1756; J1885; J2250; J2274; J2371; J2405; J2590; J3010; J7050; J7120; P9016; P9017; Q9967